=== PATIENT | male | born 1985 | race Caucasian/White ===

== ENCOUNTER 2023-05-02 15:28 | Emergency (ER) | payer OTHER ==
[2023-05-02 15:43] VITALS: BP 114/84; PULSE 62; RESP 15; TEMP 98.8; BMI 23.7
[2023-05-02 17:20] LABS: HEMOGLOBIN 14.8 G/dL (11.7-16.9); MCH 30.1 pg (25.7-33.7); MCHC 34.5 g/dl (32.0-35.9); MEAN CELL VOLUME 87.2 fl (80-96); RBC 4.93 10^6/uL (4.00-5.60); RDW 13.9 % (11.9-15.9); WHITE BLOOD COUNT 6.4 10^3/uL (4.0-10.8)
[2023-05-02 17:33] LABS: ALBUMIN 4.6 g/dl (3.4-5.0); BILIRUBIN,TOTAL 0.5 mg/dl (0.2-1); CALCIUM 9.3 mg/dl (8.5-10.1); CREATININE 0.9 mg/dl (0.6-1.3); MAGNESIUM 2.1 mg/dL (1.8-2.4); SGOT/AST 34.3 U/L (15-37); SGPT/ALT 25.3 U/L (7-52); TOT PROT 6.8 g/dl (6.4-8.2)
[2023-05-02 17:34] LABS: POTASSIUM 4.7 mmol/L (3.5-5.1)
[2023-05-02 17:37] LABS: PLATELET ESTIMATE ADEQUATE
== END 2023-05-02 22:29 | disposition home or self-care (01) ==
LOC: FER 15:28
DX: R42 Dizziness and giddiness (principal); Z20.822 Contact with and (suspected) exposure to COVID-19
CPT/HCPCS: 0241U-QW; 36415; 70450-TC; 70496-TC; 70498-TC; 80053; 81003; 83735; 85027; 93005; 99285-25